=== PATIENT | male | born 1970 | race Caucasian/White ===

== ENCOUNTER 2018-11-21 17:09 | Emergency (ER) | payer SELFPAY ==
[~2018-11-21 17:09] MED LIST: CYCL-332 PO; KET10 PO; LOR5/325 PO
--- NOTE | 2018-11-21 17:18 | ER Report ---
History and Physical Time Seen By MD: 17:18 Hx. of Stated Complaint: patient reports a sore on the posterior aspect of the base of his skull. he noticed it 2 days ago HPI/ROS CHIEF COMPLAINT: Abscess to back of head HISTORY OF PRESENT ILLNESS: 48-year-old male patient presents to emergency room with complaint of an abscess to the back of his head. Patient states that he noticed a bump the back of his head for couple of days but over the last couple days has gotten significantly worse. Patient states that he has pain that causes stiffness to his neck. He states that the pain is worse when he sleeps. He states he does sleep on his side as well as the stomach. Patient denies having any fevers, chills, nausea, vomiting or diarrhea. Patient states he's taken some ibuprofen for this with no improvement. REVIEW OF SYSTEMS: Respiratory: No cough, no dyspnea. Cardiovascular: No chest pain, no palpitations. Gastrointestinal: No vomiting, no abdominal pain. Musculoskeletal: No back pain. Allergies: Coded Allergies: morphine (Verified Allergy, Unknown, 03/05/17) Home Meds Active Scripts Hydrocodone Bit/Acetaminophen (HYDROCODON-ACETAMINOPHEN 5-325) 1 Each Tablet, 1 EACH PO Q4-6H PRN for PAIN, #6 TAB Prov:YOUNG RIVERO [facility] 11/21/18 Sulfamethoxazole/Trimet 800-160 Mg Tab (BACTRIM DS TABLET) 1 Each Tablet, 1 TAB PO Q12H, #20 TAB Prov:YOUNG RIVERO [facility] 11/21/18 Past Medical/Surgical History Patient has a past medical history of asthma, rectal bleeding, substance abuse. Patient has a surgical history of hand surgery. Reviewed Nurses Notes: Yes Hx Smoking: Yes (1/2ppd) Smoking Status: Light Tobacco Smoker Hx Substance Use Disorder: Yes Hx Alcohol Use: No Constitutional Vital Sign - Last 24 Hours 11/21/18 11/21/18 11/21/18 11/21/18 17:14 17:14 17:30 17:39 Temp 97.6 Pulse 84 83 Resp 20 B/P (MAP) 127/82 127/82 (97) 116/82 (93) Pulse Ox 92 90 O2 Delivery Room Air 11/21/18 18:11 B/P (MAP) 133/77 (95) Physical Exam General Appearance: The patient is alert, has no immediate need for airway protection and no current signs of toxicity. Respiratory: Chest is non tender, lungs are clear to auscultation. Cardiac: regular rate and rhythm Gastrointestinal: Abdomen is soft and non tender, no masses, bowel sounds normal. Musculoskeletal: Neck: Neck is supple and non tender. Extremities have full range of motion and are non tender. Skin: No rashes or lesions. Patient does have a large abscess at the back of head. Several areas where there are pustules that are formed. DIFFERENTIAL DIAGNOSIS: After history and physical exam differential diagnosis was considered for abscess, folliculitis, multiple abscesses which caused significant inflammation. Medical Decision Making ED Course/Re-evaluation ED Course Patient was admitted exam room, history and physical were obtained. Differential diagnoses were considered. On examination patient does have area of erythema, tenderness at the back of his head, does have multiple areas of white spots where purulent material is adjacent to the skin. The area was anesthetized using 1% lidocaine and 0.5% Marcaine. The patient stated he was adequately anesthetized I did make a 1 mm incision. I got out some blood but no purulent drainage. However when I did press on the edges of the area of induration I was able to get purulent drainage expressed from several different areas. Mother progressed was able to get purulent drainage out of multiple different areas. I was never able to find one central location of purulent drainage. As result I believe that the patient likely has folliculitis along the back of the scalp which is resulted in this area of erythema and swelling which does have several different areas of purulent pockets. I did obtain cultures. I believe that we need to treat the patient with antibiotics. Patient will be started on Bactrim DS one tablet twice a day. Patient did have significant amounts of pain with this as a result we will give him a limited supply of pain medication. Patient is to follow-up with his primary care provider in one week. He is return to emergency room if condition worsens. Patient verbalized understanding and agreement with plan. Procedure: Abscess drainage. The patient's abscess was located on the back of the head. I obtained verbal consent from the patient to drain the abscess who was informed about the possibility of bleeding and pain. The abscess was incised with a scalpel and was able to express a moderate amount of purulent drainage from multiple sites. The patient tolerated the procedure well. The procedure was performed by myself. Decision to Disposition Date: Nov 21, 2018 Decision to Disposition Time: 17:52 Depart Departure Latest Vital Signs Vital Signs Date Time Temp Pulse Resp B/P (MAP) Pulse Ox O2 Delivery O2 Flow Rate FiO2 11/21/18 18:11 133/77 (95) 11/21/18 17:39 83 90 11/21/18 17:14 97.6 20 Room Air Impression: Primary Impression: Folliculitis Condition: Improved Disposition: HOME OR SELF-CARE New Scripts Hydrocodone Bit/Acetaminophen (HYDROCODON-ACETAMINOPHEN 5-325) 1 Each Tablet 1 EACH PO Q4-6H PRN for PAIN, #6 TAB Prov: YOUNG RIVERO 11/21/18 Sulfamethoxazole/Trimet 800-160 Mg Tab (BACTRIM DS TABLET) 1 Each Tablet 1 TAB PO Q12H, #20 TAB Prov: YOUNG RIVERO 11/21/18 Patient Instructions: Folliculitis (ED) Additional Instructions: Limit activity by pain. Keep the area clean. You my apply warm compresses. Take the antibiotics as directed. Return to the ER if condition worsens. You may have some continual drainage and that is okay. I would expect improvement in 72 hours. YOUNG RIVERO Nov 21, 2018 17:18
[2018-11-21] MEDS ORDERED: SULF-198 PO (17:50)
[2018-11-21] MEDS ORDERED: HYDR-385 PO (17:50)
[2018-11-21 18:11] VITALS: BP 133/77
== END 2018-11-21 18:20 | disposition home or self-care (01) ==
LOC: ER 17:15
DX: L73.9 Follicular disorder, unspecified (principal)
CPT/HCPCS: 87070; 87073; 87077; 87186; 87205; 99284